=== PATIENT | female | born 1960 | race African-American/Black ===

== ENCOUNTER 2018-10-04 11:24 | Emergency (ER) | payer MEDICAID, OTHER ==
[~2018-10-04] VITALS: Ht 157.5 cm; Wt 64.0 kg
[2018-10-04] MEDS ORDERED: ACETAMINOPHEN WITH CODEINE 300/30MG TABLET PO ONE (12:45)
[2018-10-04 15:37] VITALS: BP 164/99
== END 2018-10-04 15:41 | disposition home or self-care (01) ==
LOC: ER 11:24
DX: S40.022A Contusion of left upper arm, initial encounter (principal); F17.200 Nicotine dependence, unspecified, uncomplicated; I10 Essential (primary) hypertension; W18.39XA Other fall on same level, initial encounter; Y93.89 Activity, other specified; Y92.89 Other specified places as the place of occurrence of the external cause; Y99.8 Other external cause status
CPT/HCPCS: 29130; 73060; 73130; 99283